=== PATIENT | female | born 1990 | race Caucasian/White ===

== ENCOUNTER 2018-07-20 11:08 | Emergency (ER) | payer SELFPAY ==
[~2018-07-20] VITALS: Ht 154.9 cm; Wt 56.7 kg
[2018-07-20 11:14] VITALS: BP 137/91; Ht 154.9 cm; Wt 56.7 kg
[2018-07-20 12:22] LABS: BASOPHIL % 0.3 % (0-2); PLATELET COUNT 332 x10^3mcL (130-400); RED CELL DISTRIBUTION WIDTH 16.3 % (11.5-14.5)
[2018-07-20 12:37] LABS: CARBON DIOXIDE 25.8 mmol/L (21-32); CHLORIDE SERUM 106 mmol/L (98-107); CREATININE SERUM 0.7 mg/dL (0.6-1.0); GFR1 > 60 mL/min; GLUCOSE SERUM 77 mg/dL (74-106); POTASSIUM SERUM 4.3 mmol/L (3.5-5.1); SODIUM SERUM 141 mmol/L (136-145)
[2018-07-20 12:43] LABS: ALBUMIN 3.7 g/dL (3.4-5.0); ALKALINE PHOSPHATASE 85 U/L (46-116); ALT/SGPT 27 U/L (14-59); AST/SGOT 43 U/L (15-37); BILIRUBIN TOTAL 0.37 mg/dL (0.20-1.00); TOTAL PROTEIN, SERUM 8.1 g/dL (6.4-8.2)
== END 2018-07-20 13:53 | disposition home or self-care (01) ==
LOC: ED 11:08
PROVIDERS: Emergency Medicine
DX: R07.89 Other chest pain (principal); Z88.1 Allergy status to other antibiotic agents
CPT/HCPCS: 36415; Q0092

== ENCOUNTER 2019-08-07 17:25 | Emergency (ER) | payer OTHER ==
[~2019-08-07] VITALS: Ht 154.9 cm; Wt 64.9 kg
[2019-08-07 17:39] VITALS: Ht 154.9 cm; Wt 64.9 kg
[2019-08-07 19:17] LABS: BASOPHIL % 0.4 % (0-2); PLATELET COUNT 317 x10^3mcL (130-400)
[2019-08-07 19:19] LABS: CALCIUM 8.4 mg/dL (8.5-10.1); CARBON DIOXIDE 24.5 mmol/L (21-32); CHLORIDE SERUM 104 mmol/L (98-107); CREATININE SERUM 0.6 mg/dL (0.6-1.0); GFR1 > 60 mL/min; GLUCOSE SERUM 86 mg/dL (74-106); POTASSIUM SERUM 3.7 mmol/L (3.5-5.1); SODIUM SERUM 139 mmol/L (136-145)
[2019-08-07 19:21] LABS: ALBUMIN 3.8 g/dL (3.4-5.0); ALKALINE PHOSPHATASE 87 U/L (46-116); ALT/SGPT 13 U/L (14-59); AST/SGOT 18 U/L (15-37); LIPASE 47 IU/L (73-393); TOTAL PROTEIN, SERUM 8.1 g/dL (6.4-8.2)
[2019-08-07 19:24] LABS: RED CELL DISTRIBUTION WIDTH 17.5 % (11.5-14.5)
[2019-08-07 19:58] VITALS: BP 142/87
== END 2019-08-07 19:58 | disposition home or self-care (01) ==
LOC: ED 17:25
DX: N39.0 Urinary tract infection, site not specified (principal); Z88.1 Allergy status to other antibiotic agents
CPT/HCPCS: 36415